=== PATIENT | male | born 1980 | race Caucasian/White ===

== ENCOUNTER 2021-04-05 21:39 | Outpatient (CLI) | payer OTHER | END 2021-04-05 21:40 | disposition critical access hospital (66) | LOC: EMS 21:39 | DX: R55 Syncope and collapse (principal); R94.31 Abnormal electrocardiogram [ECG] [EKG] | CPT/HCPCS: A0425; A0427 ==

== ENCOUNTER 2021-04-05 22:42 | Emergency (ER) | payer OTHER ==
--- NOTE | 2021-04-05 22:42 | ED Physician Documentation ---
PD HPI SYNCOPE - Stated complaint Stated Complaint: SYNCOPE - History obtained from History obtained from: Patient - History of Present Illness Witnessed: Witnessed Timing - onset: How many minutes ago Duration: Other (family (in ED at bedside) says LOC was approximately 30-60 seconds) Preceding symptoms: Nausea / vomiting (mild nausea , no vomiting), Light headed Contributing factors: Recent med change Injury occurred: None Pain level max: 0 Pain level now: 0 Similar symptoms before: Has not had sx before - Additional information Additional information: BIBA for syncope. Patient was at home playing board games with family tonight when family noted patient appeared very pale. They commented on this to patient, and patient's mother went to patient's side as he sat at the table, noted he was beginning to lean forward and appeared to be clenching his teeth, making sounds "like he was going to vomit" (per mother), although he did not have emesis. Mother of patient says another family member then helped keep patient in chair (there was no fall, no injury) and within approximately 30-60 seconds, patient had rapid return to baseline level of consciousness with return to normal appearance in skin color (no longer pale). Patient recalls being seated at the table, playing board games. He recalls feeling mild nausea and then next recalls family asking him if he was alright once he had regained consciousness. Patient denies h/o similar symptoms. He arrives asymptomatic. Blood sugar (finger stick) by EMS was 118. He was normotensive for EMS and was negative on orthostatics (no development of symptoms nor significant changes in vital signs). Patient had increase in his prescribed doses of venlafaxine and focalin yesterday. Review of Systems Eyes: reports: Reviewed and negative Cardiac: reports: Reviewed and negative Respiratory: reports: Reviewed and negative GI: reports: Nausea (brief, mild (resolved)). denies: Abdominal Pain, Vomiting : denies: Incontinent Musculoskeletal: reports: Reviewed and negative Neurologic: reports: Syncope. denies: Focal weakness, Numbness, Seizure, Confused, Headache, Head injury PD PAST MEDICAL HISTORY - Past Medical History Past Medical History: Yes Cardiovascular: Hypertension Psych: ADD/ADHD - Present Medications Home Medications: Ambulatory Orders Medication Instructions Recorded Confirmed Dexmethylphenidate HCl [Focalin Xr] 40 mg PO DAILY 04/05/21 04/05/21 Lisinopril [Zestril] 20 mg PO DAILY 04/05/21 04/05/21 Venlafaxine ER [Effexor ER] 75 mg PO DAILY 04/05/21 04/05/21 - Allergies Allergies/Adverse Reactions: Allergies Allergy/AdvReac Type Severity Reaction Status Date / Time No Known Drug Allergies Allergy Verified 04/05/21 22:51 - Living Situation Living Situation: reports: With family Living Arrangement: reports: At home PD ED PE NORMAL - Vitals Vital signs reviewed: Yes - General General: Alert and oriented X 3, No acute distress, Well developed/nourished - HEENT HEENT: Atraumatic, PERRL, EOMI, Moist mucous membranes - Neck Neck: Supple, no meningeal sign - Cardiac Cardiac: RRR, No murmur, No gallop, No rub - Respiratory Respiratory: No respiratory distress, Clear bilaterally - Abdomen Abdomen: Soft, Non tender - Extremities Extremities: No edema - Neuro Neuro: Alert and oriented X 3, 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, No motor deficit, No sensory deficit, Normal speech Eye Opening: Spontaneous Motor: Obeys Commands Verbal: Oriented GCS Score: 15 Results - Vitals Vitals: Vital Signs - 24 hr 04/05/21 04/05/21 04/05/21 22:47 22:54 23:21 Temperature 36.4 C L Heart Rate 83 72 68 Respiratory 18 23 Rate Blood Pressure 120/79 120/79 123/81 H O2 Saturation 99 96 97 04/05/21 04/06/21 04/06/21 23:35 00:05 00:28 Temperature 36.8 C Heart Rate 68 64 65 Respiratory 22 18 18 Rate Blood Pressure 117/77 111/70 123/77 O2 Saturation 96 96 96 Oxygen O2 Source Room air - EKG (time done) No standard instances Rate: Rate (enter#) (68) Rhythm: NSR [place]: Normal Intervals: Normal CO QRS: Normal Ischemia: Normal ST segments, T wave inversion (III (inverted), aVF (flat/inverted)) - Labs Labs: Laboratory Tests 04/05/21 04/05/21 04/05/21 23:00 23:00 23:00 WBC 8.8 RBC 4.38 L Hgb 13.5 L Hct 39.4 L MCV 90.0 MCH 30.8 MCHC 34.3 RDW 12.3 Plt Count 225 MPV 11.0 Neut # (Auto) 5.1 Lymph # (Auto) 2.7 [place] # (Auto) 0.8 Eos # (Auto) 0.1 Baso # (Auto) 0.0 Absolute Nucleated RBC 0.00 Nucleated RBC % 0.0 Sodium 137 Potassium 4.0 Chloride 102 Carbon Dioxide 25 Anion Gap 10.0 BUN 15 Creatinine 1.0 Estimated GFR (MDRD) 82 L Glucose 120 H Calcium 8.9 Troponin I High Sens 2.4 - Rads (name of study) chest xray Radiology: Prelim report reviewed, See rad report PD MEDICAL DECISION MAKING - ED course Complexity details: reviewed results, re-evaluated patient, considered differential, d/w patient ED course: Patient presents after syncopal episode, lasted 30-60 seconds, witnessed by family. Reassuring testing at this time, with normal troponin, unremarkable EKG (inverted T in III, with flat/borderline inverted T aVF), unremarkable CXR. His vital signs are stable during ED stay and he presents asymptomatic, remains asymptomatic after tests returned. We reviewed test results and he is comfortable with d/c home. His recent medication changes seem likely unrelated, although dysrhythmia would still be a consideration, as one of the mediations is a stimulant. While venlafaxine can cause QT prolongation (which could result in dysrhythmia), would not expect this to be a transient phenomenon and his EKG tonight does not show QT prolongation. The cause of his syncopal episode is undetermined at this time but further emergent or inpatient testing not indicated at this time Departure - Departure Disposition: 01 Home, Self Care Clinical Impression: Syncope Qualifiers: Syncope type: unspecified Qualified Code(s): R55 - Syncope and collapse Condition: Good Instructions: ED Fainting Unkn Cause Comments: Follow up with your primary care provider; further tests are at the discretion of your primary care provider, but are sometimes ordered for episodes of syncope even if the symptoms have resolved. Discharge Date/Time: 04/06/21 00:34
[2021-04-05 23:05] LABS: BASOPHILS % (AUTO) 0.3 %; EOSINOPHILS # (AUTO) 0.1 10^3/uL (0.0-0.7); EOSINOPHILS % (AUTO) 1.4 %; HCT - HEMATOCRIT 39.4 % (42.0-52.0); HGB - HEMOGLOBIN 13.5 g/dL (14.0-18.0); LYMPHOCYTES # (AUTO) 2.7 10^3/uL (1.5-3.5); LYMPHOCYTES % (AUTO) 30.6 %; MEAN CORPUSCULAR HEMOGLOBIN 30.8 pg (27.0-31.0); MEAN CORPUSCULAR HGB CONC 34.3 g/dL (32.0-36.0); MONOCYTES # (AUTO) 0.8 10^3/uL (0.0-1.0); MONOCYTES % (AUTO) 9.2 %; NEUTROPHILS # (AUTO) 5.1 10^3/uL (1.5-6.6); NEUTROPHILS % (AUTO) 58.4 %; PLT - PLATELET COUNT 225 10^3/uL (130-450); RED BLOOD COUNT 4.38 10^6/uL (4.70-6.10); RED CELL DISTRIBUTION WIDTH 12.3 % (12.0-15.0); WHITE BLOOD COUNT 8.8 x10^3/uL (4.8-10.8)
[2021-04-05 23:15] LABS: CALCIUM 8.9 mg/dL (8.5-10.3)
--- NOTE | 2021-04-05 23:29 | XRAY Report ---
PROCEDURE: Chest 2 View X-Ray INDICATIONS: Syncope TECHNIQUE: 2 view(s) of the chest. COMPARISON: None. FINDINGS: Surgical changes and devices: None. Lungs and pleura: No pleural effusions or pneumothorax. Lungs are clear. Mediastinum: Mediastinal contours are normal. Heart size is normal. Bones and chest wall: No suspicious bony abnormalities. Soft tissues appear unremarkable. IMPRESSION: No acute cardiopulmonary process demonstrated radiographically. Reviewed by: Karlo Vick MD on 04/05/2021 11:28 PM PDT Approved by: Karlo Vick MD on 04/05/2021 11:28 PM PDT Station ID: [email or web address]
[2021-04-06 00:31] VITALS: BP 123/77
== END 2021-04-06 00:34 | disposition home or self-care (01) ==
LOC: EDUNIT# → ED 22:42
DX: R55 Syncope and collapse (principal); Z79.899 Other long term (current) drug therapy
CPT/HCPCS: 36415; 80048; 84484; 85025; 93005; 99283; 99284